=== PATIENT | female | born 1985 | race Caucasian/White ===

== ENCOUNTER → 2018-01-25 | Outpatient (CLI) | payer OTHER | LOC: FIMAGING 08:10 | PROVIDERS: ATTEND Family Medicine | PROC: CF1CYZZ Planar Nuclear Medicine Imaging of Hepatobiliary System, All using Other Radionuclide (ICD-10-PCS; principal; 2018-01-25) | DX: R10.9 Unspecified abdominal pain (principal) | CPT/HCPCS: 78227; A9537 ==

== ENCOUNTER → 2018-03-05 | Outpatient (CLI) | payer OTHER | LOC: FIMAGING 07:10 | PROVIDERS: ATTEND Family Medicine | DX: R93.5 Abnormal findings on diagnostic imaging of other abdominal regions, including retroperitoneum (principal); R10.9 Unspecified abdominal pain ==